=== PATIENT | female | born 1960 | race Caucasian/White ===

== ENCOUNTER 2018-07-01 12:10 | Observation (INO) | payer OTHER ==
--- NOTE | 2018-07-01 12:47 | ED PDOC ---
HPI: SOB/CHF/COPD Time Seen by Provider: 07/01/18 12:29 Chief Complaint (Nursing): Cough, Cold, Congestion Chief Complaint (Provider): Cough History Per: Patient History/Exam Limitations: no limitations Onset/Duration Of Symptoms: Days (few days) Current Symptoms Are (Timing): Still Present Additional Complaint(s): Pt. with dyspnea, wheezes, cough. Pain to the left upper back. Feels like her copd. Seen by Dr. Roth and sent to the ER for possible admit. No abd pain, nausea, vomit, diarrhea, congestion. No chest pain. Past Medical History Reviewed: Nursing Documentation, Vital Signs Vital Signs: Last Vital Signs Temp 98.4 F 07/01/18 12:16 Pulse 79 07/01/18 12:16 Resp 16 07/01/18 12:16 BP 147/81 07/01/18 12:16 Pulse Ox 97 07/01/18 12:16 - Medical History PMH: COPD, Hypercholesterolemia - Surgical History Surgical History: No Surg Hx - Family History Family History: States: Unknown Family Hx - Immunization History Hx Tetanus Toxoid Vaccination: No Hx Influenza Vaccination: No Hx Pneumococcal Vaccination: No - Home Medications Home Medications: Ambulatory Orders Medication Instructions Recorded Levofloxacin [Levaquin] 750 mg PO DAILY #7 tablet 03/13/16 Prednisone 50 mg PO DAILY #5 tablet 03/13/16 - Allergies Allergies/Adverse Reactions: Allergies Allergy/AdvReac Type Severity Reaction Status Date / Time Iodinated Contrast- Oral and Allergy ANAPHYLAXIS Verified 03/13/16 12:49 IV Dye [Iodinated Contrast Media - IV Dye] iodine Allergy RASH Verified 03/13/16 12:50 Review of Systems ROS Statement: Except As Marked, All Systems Reviewed And Found Negative Cardiovascular: Negative for: Chest Pain Respiratory: Positive for: Cough, Shortness of Breath, Wheezing Musculoskeletal: Positive for: Back Pain Physical Exam - Reviewed Nursing Documentation Reviewed: Yes Vital Signs Reviewed: Yes - Physical Exam Appears: Positive for: Non-toxic, No Acute Distress Head Exam: Positive for: ATRAUMATIC, NORMAL INSPECTION, NORMOCEPHALIC Skin: Positive for: Normal Color, Warm, DRY Eye Exam: Positive for: EOMI, Normal appearance, PERRL ENT: Positive for: Normal ENT Inspection Neck: Positive for: Normal, Painless ROM Cardiovascular/Chest: Positive for: Regular Rate, Rhythm Respiratory: Positive for: Decreased Breath Sounds, Wheezing (trace) Gastrointestinal/Abdominal: Positive for: Normal Exam, Soft. 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 Negative for: L CVA Tenderness, R CVA Tenderness Extremity: Positive for: Normal ROM. Negative for: Tenderness, Pedal Edema Neurologic/Psych: Positive for: Alert, Oriented - Laboratory Results Result Diagrams: 07/01/18 13:00 07/01/18 13:00 Interpretation Of Abn Labs: 11.2 wbc - ECG ECG: Positive for: Interpreted By Me, Viewed By Me ECG Rhythm: Positive for: Normal QRS, Normal ST Segment, Sinus Rhythm O2 Sat by Pulse Oximetry: 97 Pulse Ox Interpretation: Normal - Radiology X-Ray: Read By Radiologist X-Ray Interpretation: No Acute Disease - Progress ED Course And Treament: 1447: Stable. Dr. Roth aware and will admit [facility] obs. Disposition - Clinical Impression Clinical Impression: COPD exacerbation - Patient ED Disposition Is Patient to be Admitted: Yes Counseled Patient/Family Regarding: Studies Performed, Diagnosis - Disposition Disposition Time: 14:10 Condition: FAIR - Pt Status Changed To: Hospital Disposition Of: Observation - POA Present On Arrival: None
[2018-07-01] MEDS ORDERED: Albuterol-Ipratrop 3 mg / 0.5 (3 ml) UD INH STA (12:49)
[2018-07-01] MEDS ORDERED: Sodium Chloride 0.9% 1,000 ML IV STA (12:49)
[2018-07-01] MEDS ORDERED: Albuterol-Ipratrop 3 mg / 0.5 (3 ml) UD IH STA (12:49)
[2018-07-01] MEDS ORDERED: Morphine 4 MG/ML VIAL IV ONE (12:49)
[2018-07-01 13:09] LABS: BASO # 0.1 K/uL (0.0-0.2); BASO % 0.6 % (0.0-2.0); EOS # 0.4 K/uL (0.0-0.7); EOS % 3.3 % (0.0-4.0); LYMPH # 4.1 K/uL (1.0-4.3); LYMPH % 36.2 % (20.0-40.0); MEAN CELL VOLUME 90.5 fl (81.0-99.0); MEAN CORPUSCULAR HEMOGLOBIN 31.3 pg (27.0-31.0); MEAN CORPUSCULAR HGB CONC 34.6 g/dL (33.0-37.0); MEAN PLATELET VOLUME 8.7 fl (7.2-11.7); MONO # 0.7 K/uL (0.0-0.8); MONO % 6.3 % (0.0-10.0); NEUT % 53.6 % (50.0-75.0); NRBC % 0.1 % (0.0-0.0); RBC 4.47 Mil/uL (3.80-5.20); WHITE BLOOD COUNT 11.2 K/uL (4.8-10.8)
[2018-07-01] MEDS ORDERED: Morphine 4 MG/ML VIAL ONE (13:13)
[2018-07-01] MEDS ORDERED: Albuterol-Ipratrop 3 mg / 0.5 (3 ml) UD ONE (13:16)
[2018-07-01 13:27] LABS: ALB/GLOB RATIO 1.3 (1.0-2.1); ALBUMIN 4.3 g/dL (3.5-5.0); ALT/SGPT 31 U/L (9-52); AST/SGOT 29 U/L (14-36); BLOOD UREA NITROGEN 11 mg/dl (7-17); CALCIUM 9.4 mg/dL (8.4-10.2); GFR NON-AFRICAN AMERICAN > 60
[2018-07-01 13:28] LABS: VENOUS BLOOD GAS BASE EXCESS 3.1 mmol/L (0.0-2.0); VENOUS BLOOD GAS PCO2 51 mmHg (40-60); VENOUS BLOOD GAS PO2 23 mm/Hg (30-55); VENOUS BLOOD PH 7.37 (7.32-7.43)
--- NOTE | 2018-07-01 13:35 | RAD ---
Date of service: 07/01/2018 HISTORY: dyspnea COMPARISON: 03/13/2016 FINDINGS: LUNGS: No active pulmonary disease. PLEURA: No significant pleural effusion identified, no pneumothorax apparent. CARDIOVASCULAR: No aortic atherosclerotic calcification present OSSEOUS STRUCTURES: No significant abnormalities. VISUALIZED UPPER ABDOMEN: Normal. OTHER FINDINGS: None. IMPRESSION: No active disease.
[2018-07-01 13:37] LABS: B-TYPE NATRIURETIC PEPTIDE 37.5 pg/ml (0-900)
[2018-07-01] MEDS ORDERED: Albuterol-Ipratrop 3 mg / 0.5 (3 ml) UD INH PRN (16:47)
[2018-07-01] MEDS ORDERED: Dextrose 5%/0.45% NS 1,000 ML IV SCH (17:00)
[2018-07-01] MEDS ORDERED: methylPREDNISolone 125 MG in Sodium Chloride 0.9% 50 ML IVPB SCH (17:00)
[2018-07-01] MEDS ORDERED: Apap-Butalbital-Caffeine 325-50-40mg Tab PO PRN (18:37)
[2018-07-01] MEDS: Oxycodone/Acetaminophen 5/325 mg Tab PO PRN (20:01)
--- NOTE | 2018-07-01 21:03 | CARD ---
APPROVED REPORT Date of service: 07/01/2018 EKG Measurement Heart [id number] <Conclusion> Normal sinus rhythm Voltage criteria for left ventricular hypertrophy Abnormal ECG
[2018-07-02 07:07] LABS: T4 5.91 ug/dl (5.5-11.0)
[2018-07-02] MEDS: Enoxaparin 40 mg Syringe SC SCH (08:29)
[2018-07-02] MEDS: Pantoprazole 40 mg EC Tab PO SCH (08:30)
--- NOTE | 2018-07-02 13:14 | CP.PCM.CON ---
History of Present Illness - History of Present Illness History of Present Illness: 57 yo woman w/ fibromyalgia admittd for COPD exacerbation is referred for pain management. Patient has a chronic history of joint rash, swelling, and pain, and has carried a diagnosis of fibromyalgia. She was told at one time she had SLE but the latest test was negative. She had Lyme disease before as well. The main pain that's been bothering her is the left sided chest pain and shoulder and mid-back pain after a mammogram in April. Since then she's had pain in the left trapezius region mostly, but also the left paraspinal region in the thorax and left lateral chest. The pain is pleuritic, and according to the patient muskuloskeletal in nature. She has some numbness in the left arm as well. CXR didn't reveal any bony pathologies. Past Patient History - Past Social History Smoking Status: Heavy Smoker > 10 Cigarettes Daily - CARDIAC Hx Cardiac Disorders: Yes Hx Hypercholesterolemia: Yes - PULMONARY Hx Respiratory Disorders: Yes Hx Chronic Obstructive Pulmonary Disease (COPD): Yes - NEUROLOGICAL Hx Neurological Disorder: No Other/Comment: lyme - HEENT Hx HEENT Problems: No - RENAL Hx Chronic Kidney Disease: Yes Hx Kidney Stones: Yes - ENDOCRINE/METABOLIC Hx Endocrine Disorders: Yes Hx Hypothyroidism: Yes - HEMATOLOGICAL/ONCOLOGICAL Hx Blood Disorders: No Hx AIDS: No Hx Human Immunodeficiency Virus (HIV): No - INTEGUMENTARY Hx Dermatological Problems: No - MUSCULOSKELETAL/RHEUMATOLOGICAL Hx Musculoskeletal Disorders: No Hx Falls: No - GASTROINTESTINAL Hx Gastrointestinal Disorders: No - GENITOURINARY/GYNECOLOGICAL Hx Genitourinary Disorders: Yes Hx Urinary Tract Infection: Yes - PSYCHIATRIC Hx Psychophysiologic Disorder: Yes Hx Anxiety: Yes Hx Depression: Yes Hx Substance Use: No - SURGICAL HISTORY Hx Surgeries: Yes Hx Hysterectomy: Yes Hx Thyroidectomy: Yes - ANESTHESIA Hx Anesthesia: Yes Hx Anesthesia Reactions: No Meds Allergies/Adverse Reactions: Allergies Allergy/AdvReac Type Severity Reaction Status Date / Time Iodinated Contrast- Oral and Allergy ANAPHYLAXIS Verified 03/13/16 12:49 IV Dye [Iodinated Contrast Media - IV Dye] iodine Allergy RASH Verified 03/13/16 12:50 - Medications Medications: Current Medications Acetaminophen/Butalbital/Caffeine (Fioricet) 1 tab PO Q6 PRN PRN Reason: Migraine headache Albuterol/Ipratropium (Duoneb 3 Mg/0.5 Mg (3 Ml) Ud) 3 ml INH RQ6 PRN PRN Reason: Shortness of Breath Alprazolam (Xanax) 0.5 mg PO Q8 PRN PRN Reason: Anxiety Atorvastatin Calcium (Lipitor) 20 mg PO HS [facility] Last Admin: 07/01/18 21:29 Dose: 20 mg Clonazepam (Klonopin) 0.5 mg PO Q12 PRN PRN Reason: Anxiety Diazepam (Valium) 10 mg PO HS PRN PRN Reason: Muscle spasm Doxepin HCl (Sinequan) 50 mg PO HS [facility] Last Admin: 07/01/18 21:29 Dose: 50 mg Enoxaparin Sodium (Lovenox) 40 mg SC DAILY [facility]; Protocol Last Admin: 07/02/18 08:29 Dose: 40 mg Dextrose/Sodium Chloride (Dextrose 5%/0.45% Ns 1000 Ml) 1,000 mls @ 40 mls/hr IV .Q24H [facility] Stop: 07/02/18 16:52 Last Admin: 07/01/18 17:04 Dose: 40 mls/hr Levothyroxine Sodium (Levothroid) 137 mcg PO DAILY@0630 [facility] Last Admin: 07/02/18 06:01 Dose: 137 mcg Methylprednisolone (Solu-Medrol) 125 mg IV Q8H [facility] Last Admin: 07/02/18 08:30 Dose: 125 mg Morphine Sulfate (Morphine) 2 mg IVP Q6 PRN PRN Reason: Pain, severe (8-10) Last Admin: 07/02/18 11:50 Dose: 2 mg Nicotine (Nicoderm Cq) 1 patch TD DAILY [facility] Last Admin: 07/02/18 11:51 Dose: 1 patch Olanzapine (Zyprexa) 2.5 mg PO HS [facility] Last Admin: 07/01/18 21:29 Dose: 2.5 mg Oxycodone/Acetaminophen (Percocet 5/325 Mg Tab) 1 tab PO Q6 PRN PRN Reason: Pain, Mild (1-3) Stop: 07/04/18 18:39 Last Admin: 07/01/18 20:01 Dose: 1 tab Pantoprazole Sodium (Protonix Ec Tab) 40 mg PO DAILY [facility] Last Admin: 07/02/18 08:30 Dose: 40 mg Physical Exam - Neck Exam Neck exam: Positive for: Full Rom, Tenderness - Respiratory Exam Respiratory Exam: Chest Wall Tenderness Results - Vital Signs Recent Vital Signs: Last Vital Signs Temp 97.5 F L 07/02/18 08:28 Pulse 76 07/02/18 08:28 Resp 20 07/02/18 08:28 BP 122/73 07/02/18 08:28 Pulse Ox 95 07/02/18 08:28 - Labs Result Diagrams: 07/01/18 13:00 07/01/18 13:00 Labs: Laboratory Results - last 24 hr 07/01/18 07/01/18 07/02/18 13:00 13:24 05:40 pO2 23 L VBG pH 7.37 VBG pCO2 51 VBG HCO3 25.7 VBG Total CO2 31.1 H VBG O2 Sat (Calc) 56.2 VBG Base Excess 3.1 H VBG Potassium 4.0 Glucose 89 Lactate 1.0 FiO2 21.0 Sodium 143 138.0 Potassium 4.0 Chloride 108 H 107.0 Carbon Dioxide 29 Anion Gap 10 BUN 11 Creatinine 0.6 L Est GFR ( Amer) > 60 Est GFR (Non-Af Amer) > 60 Random Glucose 91 Calcium 9.4 Total Bilirubin 0.2 AST 29 ALT 31 Alkaline Phosphatase 77 Troponin I < 0.0120 NT-Pro-B Natriuret Pep 37.5 Total Protein 7.7 Albumin 4.3 Globulin 3.3 Albumin/Globulin Ratio 1.3 Triglycerides 70 Cholesterol 241 H LDL Cholesterol Direct 160 H HDL Cholesterol 63 Thyroxine (T4) 5.91 TSH 3rd Generation 1.08 Venous Blood Potassium 4.0 Assessment & Plan (1) Flank pain Assessment and Plan: 57 yo woman with chest wall, cervical/thoracic pain of unknown origin. There is probably a neuropathic component to her pain, given her history of fibromyalgia, but would have to rule out musculoskeletal etiologies. - would recommend continuing Doxepin as outpatient, would add Tramadol 50mg and Neurontin 300mg q8h to her regimen - would consider cervical and thoracic MRI as outpatient to rule out disc herniations - neurology referral as outpatient - consider pain management referral for potential cervical medial branch nerve blocks, PECS blocks, Stellate ganglion blocks if work-up is negative Status: Acute
[2018-07-02] MEDS: Oxycodone/Acetaminophen 5/325 mg Tab PO PRN (18:08)
--- NOTE | 2018-07-02 22:36 | HP ---
HISTORY OF PRESENT ILLNESS: Ms. Jurado is a 57-year-old female who was admitted via the emergency room because of shortness of breath, exercise intolerance and cough with thick tenacious sputum for the past several days prior to presentation. She had been treated as an outpatient with oral antibiotics but had not responded. She also complains of severe left-sided back and breast pain for the past several days following a mammogram. She has a history of chronic obstructive pulmonary disease and continues to smoke cigarettes. She also has a history of fibromyalgia, severe recurrent skin rash and rash of palms, anxiety disorder, hyperlipidemia, hypothyroidism, history of Lyme disease in the past. FAMILY HISTORY: Nonrevealing. SOCIAL HISTORY: She smokes one to two packs of cigarettes a day. Does not drink and does not use drugs. PHYSICAL EXAMINATION: GENERAL: The patient is alert and oriented, somewhat anxious. Still complaining of pain. VITAL SIGNS: Remarkable for blood pressure of 122/73, pulse of 76, respiratory rate 20. She is afebrile. O2 sat 95% on room air. SKIN: Shows fair turgor. HEENT: Pupils are reactive and accommodation. JVP flat. Mouth shows fair hygiene. LUNGS: Poor aeration with audible wheezing and rales. HEART: Regular. ABDOMEN: Soft, nontender. No organomegaly. EXTREMITIES: Tremors bilaterally, probably due to anxiety. No edema or cyanosis appreciated. GENITAL AND RECTAL: Exams deferred. CENTRAL NERVOUS SYSTEM: Except for anxiety and severe diffuse muscle tenderness essentially unremarkable. LABORATORY DATA: Remarkable for venous blood gas showed a pH of 7.37, pO2 of 23, pCO2 of 51. Sodium 143, potassium 4.0, BUN of 11, creatinine 0.6. Cholesterol 241, LDL 160, triglyceride 70. WBC 11.2, hemoglobin 14, platelet count 258,000. Chest x-ray shows no acute cardiopulmonary pathology. EKG normal sinus rhythm, LVH by voltage. IMPRESSION: Acute exacerbation of chronic obstructive pulmonary disease, severe musculoskeletal pain. The patient has a history of fibromyalgia, severe anxiety disorder and hyperlipidemia. PLAN: Intravenous steroids as well as bronchodilators, oxygen and analgesics for pain. We will obtain pain management evaluation for appropriate therapy of pain. Further therapy will depend on findings. The patient was admitted for observation and will need activities 48 hours in-house with aggressive therapy; if clinically stable, we will discharge in a.m. Natan Roth MD [facility] # [phone]
[2018-07-03 00:25] VITALS: RESP 20
[2018-07-03] MEDS: Oxycodone/Acetaminophen 5/325 mg Tab PO PRN ×2 (01:17→10:26)
[2018-07-03 08:02] VITALS: BP 136/69; PULSE 70; TEMP 98.3; O2SAT 92
--- NOTE | 2018-07-03 10:16 | CP.PCM.DIS ---
Provider - Provider Date of Admission: 07/01/18 14:56 Attending physician: Natan Thomas MD Time Spent in preparation of Discharge (in minutes): 30 Diagnosis - Discharge Diagnosis (1) Back pain Status: Acute (2) Hypothyroidism Status: Acute (3) Fibromyalgia Status: Acute (4) Depression Status: Acute (5) History of Lyme disease Status: Acute (6) COPD exacerbation Status: Acute Hospital Course - Lab Results Lab Results: Micro Results 07/01/18 12:35 Blood-Venous Blood Culture - Preliminary NO GROWTH AFTER 24 HOURS 07/01/18 12:30 Blood-Venous Blood Culture - Preliminary NO GROWTH AFTER 24 HOURS Most Recent Lab Values WBC 11.2 K/uL (4.8-10.8) H 07/01/18 13:00 RBC 4.47 Mil/uL (3.80-5.20) 07/01/18 13:00 Hgb 14.0 g/dL (12.0-16.0) 07/01/18 13:00 Hct 40.5 % (34.0-47.0) 07/01/18 13:00 MCV 90.5 fl (81.0-99.0) 07/01/18 13:00 MCH 31.3 pg (27.0-31.0) H 07/01/18 13:00 MCHC 34.6 g/dL (33.0-37.0) 07/01/18 13:00 RDW 13.0 % (11.5-14.5) 07/01/18 13:00 Plt Count 258 K/uL (130-400) 07/01/18 13:00 MPV 8.7 fl (7.2-11.7) 07/01/18 13:00 Neut % (Auto) 53.6 % (50.0-75.0) 07/01/18 13:00 Lymph % (Auto) 36.2 % (20.0-40.0) 07/01/18 13:00 [place] % (Auto) 6.3 % (0.0-10.0) 07/01/18 13:00 Eos % (Auto) 3.3 % (0.0-4.0) 07/01/18 13:00 Baso % (Auto) 0.6 % (0.0-2.0) 07/01/18 13:00 Neut # (Auto) 6.0 K/uL (1.8-7.0) 07/01/18 13:00 Lymph # (Auto) 4.1 K/uL (1.0-4.3) 07/01/18 13:00 [place] # (Auto) 0.7 K/uL (0.0-0.8) 07/01/18 13:00 Eos # (Auto) 0.4 K/uL (0.0-0.7) 07/01/18 13:00 Baso # (Auto) 0.1 K/uL (0.0-0.2) 07/01/18 13:00 pO2 23 mm/Hg (30-55) L 07/01/18 13:24 VBG pH 7.37 (7.32-7.43) 07/01/18 13:24 VBG pCO2 51 mmHg (40-60) 07/01/18 13:24 VBG HCO3 25.7 mmol/L 07/01/18 13:24 VBG Total CO2 31.1 mmol/L (22-28) H 07/01/18 13:24 VBG O2 Sat (Calc) 56.2 % (40-65) 07/01/18 13:24 VBG Base Excess 3.1 mmol/L (0.0-2.0) H 07/01/18 13:24 VBG Potassium 4.0 mmol/L (3.6-5.2) 07/01/18 13:24 Sodium 138.0 mmol/L (132-148) 07/01/18 13:24 Chloride 107.0 mmol/L (98-107) 07/01/18 13:24 Glucose 89 mg/dL (65-105) 07/01/18 13:24 Lactate 1.0 mmol/L (0.7-2.1) 07/01/18 13:24 FiO2 21.0 % 07/01/18 13:24 Sodium 143 mmol/l (132-148) 07/01/18 13:00 Potassium 4.0 MMOL/L (3.6-5.0) 07/01/18 13:00 Chloride 108 mmol/L (98-107) H 07/01/18 13:00 Carbon Dioxide 29 mmol/L (22-30) 07/01/18 13:00 Anion Gap 10 (10-20) 07/01/18 13:00 BUN 11 mg/dl (7-17) 07/01/18 13:00 Creatinine 0.6 mg/dl (0.7-1.2) L 07/01/18 13:00 Est GFR ( Amer) > 60 07/01/18 13:00 Est GFR (Non-Af Amer) > 60 07/01/18 13:00 Random Glucose 91 mg/dL (65-105) 07/01/18 13:00 Calcium 9.4 mg/dL (8.4-10.2) 07/01/18 13:00 Total Bilirubin 0.2 mg/dl (0.2-1.3) 07/01/18 13:00 AST 29 U/L (14-36) 07/01/18 13:00 ALT 31 U/L (9-52) 07/01/18 13:00 Alkaline Phosphatase 77 U/L (38-126) 07/01/18 13:00 Troponin I < 0.0120 ng/mL (0.00-0.120) 07/01/18 13:00 NT-Pro-B Natriuret Pep 37.5 pg/ml (0-900) 07/01/18 13:00 Total Protein 7.7 G/DL (6.3-8.2) 07/01/18 13:00 Albumin 4.3 g/dL (3.5-5.0) 07/01/18 13:00 Globulin 3.3 gm/dL (2.2-3.9) 07/01/18 13:00 Albumin/Globulin Ratio 1.3 (1.0-2.1) 07/01/18 13:00 Triglycerides 70 mg/DL (0-149) 07/02/18 05:40 Cholesterol 241 mg/dL (0-199) H 07/02/18 05:40 LDL Cholesterol Direct 160 mg/dL (0-129) H 07/02/18 05:40 HDL Cholesterol 63 MG/DL (30-70) 07/02/18 05:40 Thyroxine (T4) 5.91 ug/dl (5.5-11.0) 07/02/18 05:40 TSH 3rd Generation 1.08 mIU/ML (0.46-4.68) 07/02/18 05:40 Venous Blood Potassium 4.0 mmol/L (3.6-5.2) 07/01/18 13:24 - Hospital Course Hospital Course: sob improved back pain less Discharge Exam - Head Exam Head Exam: ATRAUMATIC, NORMAL INSPECTION, NORMOCEPHALIC - Eye Exam Eye Exam: EOMI, Normal appearance, PERRL Pupil Exam: NORMAL ACCOMODATION, PERRL - GI/Abdominal Exam GI & Abdominal Exam: Normal Bowel Sounds - Rectal Exam Rectal Exam: NORMAL INSPECTION - Neurological Exam Neurological exam: Alert, CN II-XII Intact, Normal Gait, Oriented x3, Reflexes Normal - Psychiatric Exam Psychiatric exam: Normal Affect, Normal Mood - Skin Skin Exam: Dry, Intact, Normal Color, Warm Discharge Plan - Follow Up Plan Condition: FAIR Disposition: HOME/ ROUTINE Patient education suggested?: Yes Additional Instructions: follow up with dr thomas
[2018-07-03] MEDS: Enoxaparin 40 mg Syringe SC SCH (10:24)
[2018-07-03] MEDS: Pantoprazole 40 mg EC Tab PO SCH (10:25)
== END 2018-07-03 11:58 | disposition home or self-care (01) ==
LOC: H.ER 12:10 → H.ERHOLD 14:56 → H.MEDSURG1 18:25
PROVIDERS: ADMIT Internal Medicine Pulmonary Disease; ATTEND Internal Medicine Pulmonary Disease
DX: M54.6 Pain in thoracic spine (principal); J44.1 Chronic obstructive pulmonary disease with (acute) exacerbation; M79.7 Fibromyalgia; F41.9 Anxiety disorder, unspecified; E78.5 Hyperlipidemia, unspecified; F17.210 Nicotine dependence, cigarettes, uncomplicated; E03.9 Hypothyroidism, unspecified; F32.9 Major depressive disorder, single episode, unspecified
CPT/HCPCS: 36415; 71045; 80053; 80061; 82803; 83880; 84436; 84443; 84484; 85025; 87040; 93005; 96374; 99284; G0378; J1650; J2270; J2930; J7030; J7042